=== PATIENT | female | born 1945 | race Caucasian/White ===

== ENCOUNTER 2017-11-16 23:12 | Inpatient (IN) | payer MEDICARE, OTHER ==
[2017-11-16] MEDS ORDERED: ONDANSETRON ODT 8 MG TAB SL ONE (23:34)
[2017-11-16] MEDS ORDERED: SODIUM CHLORIDE 0.9% 1000ML 1,000 ML IVS ONE (23:34)
--- NOTE | 2017-11-16 23:40 | ED.PDOC ---
History of Present Illness - General Chief Complaint: Neuro Symptoms/Deficits Stated Complaint: slurred speech, unsteady gait Time Seen by Provider: 11/16/17 23:33 Source: patient, family - History of Present Illness Initial Comments: patient is a 72-year-old who comes in for altered LOC. Patient states she's been under some increased stress as they have just found out that her will require pacemaker. However, she was feeling in normal health when she went to dinner with friends this evening. By the end of the dinner however should become emotional and not quite herself. She seemed a little bit unstable when she was walking and so they did go ahead and go home. On arrival to home patient became violently ill with nausea and vomiting several times with bilious emesis. Patient stated that she was confused and didn't quite know where she was at her became very concerned with her state of mind. She had no numbness nor weakness. She denies any change in sensation to her face, body, or extremities. She was able to speak but seems slightly confused. She denies any chest pain, shortness of breath, but is having some chills but no fever. She's not had any cough or cold symptoms recently. She denies any dysuria. She has no abdominal pain but is still quite tearful when she starts to discuss how she felt and how scared she was zee she didn't know where she was out. She has never had an episode like this be she is otherwise healthy and has no real past medical history. Patient does not smoke but she does drink vodka or wine daily. Tonight she only had 2 glasses. She does not take any illicit substances. Patient states she just feels so sick. She is not sure what is wrong but she feels horrible. Timing/Duration: 1-3 hours Severity: severe Improving Factors: nothing Associated Symptoms: nausea/vomiting, other - altered LOC Allergies/Adverse Reactions: Allergies Tetanus Toxoid Allergy (Verified 11/16/17 23:35) Review of Systems - Review of Systems Constitutional: States: chills, weakness. Denies: diaphoresis, fever EENTM: States: no symptoms reported. Denies: eye pain, ear pain, ear discharge , throat pain, throat swelling Respiratory: States: no symptoms reported. Denies: cough, short of breath, wheezing Cardiology: States: no symptoms reported. Denies: chest pain, edema, palpitations Gastrointestinal/Abdominal: States: no symptoms reported, nausea, vomiting. Denies: abdominal pain, diarrhea Genitourinary: States: no symptoms reported. Denies: dysuria, frequency Musculoskeletal: States: no symptoms reported Skin: States: no symptoms reported Neurological: States: weakness, other - see HPI. Denies: headache, numbness, paresthesia Past Medical History (General) - Patient Medical History Hx Asthma: No Hx of COPD: No Hx Congestive Heart Failure: No Hx Hypertension: No Surgical History: no surgical history - Vaccination History Hx Tetanus, Diphtheria Vaccination: No Hx Influenza Vaccination: No - Social History Hx Tobacco Use: No Hx Chewing Tobacco Use: No Hx Alcohol Use: Yes - wine Family Medical History - Family History Father Hx Family Diabetes: Yes Mother Hx Cardiac Disease: Yes Physical Exam - Physical Exam General Appearance: Anxious Eye Exam: bilateral normal Ears, Nose, Throat: hearing grossly normal, normal ENT inspection, normal pharynx Neck: non-tender, full range of motion, supple, normal inspection Respiratory: chest non-tender, lungs clear, normal breath sounds, no respiratory distress Cardiovascular/Chest: normal peripheral pulses, regular rate, rhythm, no edema, no gallop, no JVD, no murmur Peripheral Pulses: radial,right: 2+ Gastrointestinal/Abdominal: normal bowel sounds, non tender, soft, no organomegaly, no pulsatile mass Back Exam: normal inspection Extremity: normal range of motion Neurologic: mass spectrometry specialist II-XII nml as tested, no motor/sensory deficits, alert, oriented x 3 DTR: 2+: Biceps, left, Biceps, right, Patellar, left, Patellar, right Skin Exam: normal color, other - cool to touch Lymphatic: no adenopathy Progress - Progress Progress: 11/17/17 00:13 Patient Name: DIONNA FRANCO Gender: Female Date of : 1945 Referring Physician: TAE TURK 11/16/17 23:45 EKG STAT 11/17/17 00:46 Piperacillin/Tazobactam [Zosyn] 3.375 gm Sodium Chloride 0.9% 100Ml [NS (NACL 0.9%) 100ml] 100 ml IVPB ONCE 11/17/17 00:51 BLOOD CULTURE Stat 11/17/17 01:20 BLOOD CULTURE Stat Laboratory Results WBC 7.8 K/mm3 (4.8-10.8) 11/16/17 00:01 RBC 4.66 M/mm3 (4.20-5.40) 11/16/17 00:01 Hgb 14.1 gm/dL (12.0-16.0) 11/16/17 00:01 Hct 41.7 % (36.0-47.0) 11/16/17 00:01 MCV 89.6 fl (81.0-99.0) 11/16/17 00:01 MCH 30.2 pg (27.0-31.0) 11/16/17 00:01 MCHC 33.7 g/dL (33.0-37.0) 11/16/17 00:01 RDW 14.0 % (11.5-14.5) 11/16/17 00:01 Plt Count 311 K/mm3 (130-400) 11/16/17 00:01 MPV 7.2 fl (7.40-10.4) L 11/16/17 00:01 Absolute Neuts (auto) 4.90 K/uL (1.8-6.8) 11/16/17 00:01 Absolute Lymphs (auto) 2.20 K/uL (1.0-3.4) 11/16/17 00:01 Absolute Monos (auto) 0.40 K/uL (0.2-0.8) 11/16/17 00:01 Absolute Eos (auto) 0.10 K/uL (0.0-0.4) 11/16/17 00:01 Absolute Basos (auto) 0.10 K/uL (0.0-0.1) 11/16/17 00:01 Neutrophils % 63.4 % (42.0-78.0) 11/16/17 00:01 Lymphocytes % 28.9 % (20.0-50.0) 11/16/17 00:01 Monocytes % 5.7 % (2.0-9.0) 11/16/17 00:01 Eosinophils % 1.3 % (1.0-5.0) 11/16/17 00:01 Basophils % 0.7 % (0.0-2.0) 11/16/17 00:01 Sodium 138 mmol/L (135-145) 11/16/17 00:01 Potassium 3.7 mmol/L (3.6-5.0) 11/16/17 00:01 Chloride 103 mmol/L (101-111) 11/16/17 00:01 Carbon Dioxide 26 mmol/L (21-31) 11/16/17 00:01 Anion Gap 12.7 (12-18) 11/16/17 00:01 BUN 19 mg/dL (7-18) H 11/16/17 00:01 Creatinine 0.90 mg/dL (0.6-1.3) 11/16/17 00: BUN/Creatinine Ratio 21.1 (10-20) H 11/16/17 00:01 Random Glucose 113 mg/dL (70-105) H 11/16/17 00: Serum Osmolality 278.7 mOsm/L (275-295) 11/16/17 00: Lactic Acid 2.5 mmol/L (0.5-2.2) H* 11/16/17 00:01 Calcium 9.3 mg/dL (8.4-10.2) 11/16/17 00:01 Total Bilirubin 0.6 mg/dL (0.2-1.0) 11/16/17 00:01 AST 22 IU/L (10-42) 11/16/17 00:01 ALT 24 IU/L (10-60) 11/16/17 00:01 Alkaline Phosphatase 77 IU/L (42-121) 11/16/17 00:01 Creatine Kinase 62 IU/L (26-140) 11/16/17 00:01 CK-MB (CK-2) 1.5 ng/mL (0.0-4.4) 11/16/17 00:01 Troponin I < 0.02 ng/mL (0.01-0.05) 11/16/17 00:01 Serum Total Protein 7.4 gm/dL (6.4-8.2) 11/16/17 00:01 Albumin 4.1 g/dl (3.2-5.5) 11/16/17 00:01 Globulin 3.3 gm/dL (2.3-3.5) 11/16/17 00:01 Albumin/Globulin Ratio 1.2 (1.1-1.9) 11/16/17 00:01 Urine Color Yellow (Yellow) 11/16/17 23:39 Urine Appearance Clear (Clear) 11/16/17 23:39 Urine pH 5.5 (4.5-7.8) 11/16/17 23:39 Ur Specific Leonard 1.020 (1.005-1.030) 11/16/17 23:39 Urine Protein Negative mg/dL 11/16/17 23:39 Urine Glucose (UA) Negative mg/dL (Negative) 11/16/17 23:39 Urine Ketones Negative mg/dL (NEGATIVE) 11/16/17 23:39 Urine Blood Negative (Negative) 11/16/17 23:39 Urine Nitrite Negative 11/16/17 23:39 Urine Bilirubin Negative (NEGATIVE) 11/16/17 23:39 Urine Urobilinogen 0.2 mg/dL (0.2-1.0) 11/16/17 23:39 Ur Leukocyte Esterase Negative (Negative) 11/16/17 23:39 Urine RBC 0 /hpf 11/16/17 23:39 Urine WBC 0 /hpf 11/16/17 23:39 Ur Epithelial Cells 0-1 /hpf 11/16/17 23:39 Urine Bacteria Rare 11/16/17 23:39 Organization: [facility] Accession Number: [id number] Requested Date: November 16, 2017 23:34 Report Status: Final Requested Procedure: 1 Procedure Description: Head Modality: CT Findings Reporting MD: Tommy Houston Fellow MD: Not available Dictation Time: [employer] Driver: Not available Cemetery Counselor Date: EXAM: NONCONTRAST BRAIN CT EXAMINATION. CLINICAL INDICATION: Altered level of consciousness. COMPARISON: No comparisons are currently available. TECHNIQUE: Using low dose helical CT technique, thin section axial images were performed through the brain without the administration of intravenous or subarachnoid contrast material. FINDINGS: Brain volume is normal for age. No diffuse brain swelling or brain herniation. No hydrocephalus. No subdural or epidural hematomas. No large subacute brain infarction. No parenchymal brain hemorrhage or evidence of intracranial mass lesion. The brainstem and cerebellum are normal. Cerebral white matter is grossly normal. Caudate heads, lentiform nuclei, thalami and internal capsules are normal. Bones of the skull and skull base are normal. The middle ears and mastoid air cells are clear. The partially visualized paranasal sinuses are clear. Moderate atherosclerotic calcification in the cavernous internal carotid arteries. IMPRESSION: 1. Normal for age noncontrast brain CT examination 11/17/17 01:30 - EKG/XRAY/CT CT Ordered: Yes - Patient Name: DIONNA FRANCO Departure - Departure Clinical Impression: Dehydration, AGE (acute gastroenteritis) Disposition: Admit Patient Condition: Good Departure Forms: ED Discharge - Pt. Copy, Patient Portal Self Enrollment Referrals: Taran Gardner MD [Primary Care Provider] - 1-2 Weeks Comments: Patient is ill appearing and has elevated lactic acid. Zosyn started but no source and may be from dehydration and AGE. With age and elevation will admit for monitoring. Spoke with Dr. Roman and will admit.
--- NOTE | 2017-11-16 23:56 | CT ---
EXAM: NONCONTRAST BRAIN CT EXAMINATION. CLINICAL INDICATION: Altered level of consciousness. COMPARISON: No comparisons are currently available. TECHNIQUE: Using low dose helical CT technique, thin section axial images were performed through the brain without the administration of intravenous or subarachnoid contrast material. FINDINGS: Brain volume is normal for age. No diffuse brain swelling or brain herniation. No hydrocephalus. No subdural or epidural hematomas. No large subacute brain infarction. No parenchymal brain hemorrhage or evidence of intracranial mass lesion. The brainstem and cerebellum are normal. Cerebral white matter is grossly normal. Caudate heads, lentiform nuclei, thalami and internal capsules are normal. Bones of the skull and skull base are normal. The middle ears and mastoid air cells are clear. The partially visualized paranasal sinuses are clear. Moderate atherosclerotic calcification in the cavernous internal carotid arteries. IMPRESSION: 1. Normal for age noncontrast brain CT examination. This exam was performed according to our departmental dose-optimization program, which includes automated exposure control, adjustment of the mA and/or kV according to patient size and/or use of iterative reconstruction technique. Electronically signed by: Tommy Houston MD 11/16/2017 11:55 PM CDT
[2017-11-17] MEDS ORDERED: PIPERACILLIN/TAZOBACTAM 3.375 GM in SODIUM CHLORIDE 0.9% 100ML 100 ML IVPB ONE (00:46)
[2017-11-17] MEDS ORDERED: SODIUM CHLORIDE 0.9% 100ML 100 ML IVPB ONE ×3 (01:13→19:30)
[2017-11-17] MEDS ORDERED: PIPERACILLIN/TAZOBACTAM 3.375 GM VIAL IVPB ONE ×3 (01:13→19:30)
[2017-11-17] MEDS ORDERED: SODIUM CHLORIDE 0.9% (FLUSH) 10 ML SYG IV PRN (04:26)
[2017-11-17] MEDS ORDERED: IV SET AND CAP CHANGE INJ INJ SCH (04:30)
[2017-11-17] MEDS ORDERED: SODIUM CHLORIDE 0.9% 1000ML 1,000 ML IVS ONE (04:30)
[2017-11-17] MEDS ORDERED: ONDANSETRON INJ 4 MG/2 ML VIAL IV PRN (04:30)
[2017-11-17] MEDS: ACETAMINOPHEN 325 MG TAB PO PRN ×2 (04:59→20:56)
[2017-11-17] MEDS ORDERED: PANTOPRAZOLE SODIUM IV 40 MG VIAL IV SCH (05:00)
[2017-11-17] MEDS ORDERED: KCL 20 MEQ/NS 1,000 ML IVS PRN (06:00)
--- NOTE | 2017-11-17 07:12 | RAD ---
EXAM DESCRIPTION: Chest,2 Views CLINICAL HISTORY: sepsis unknown etiology COMPARISON: None available FINDINGS: The cardiomediastinal silhouette is unremarkable. There is no airspace consolidation or pleural effusion. The bronchovascular markings are within normal limits, and the lungs are not hyperinflated. There is no pneumothorax or acute fracture. IMPRESSION: Negative exam. Electronically signed by: Doyle Shirley MD 11/17/2017 7:11 AM CDT
--- NOTE | 2017-11-17 07:14 | RAD ---
EXAM DESCRIPTION: Abdomen Flat Upright CLINICAL HISTORY: 72 years Female, sepsis unknown etiology COMPARISON: None. FINDINGS: The bowel gas pattern is nonobstructive. There is a moderate amount of stool and gas scattered throughout the colon. A small calcification in the left side of the pelvis probably represents a phlebolith. There is additional calcification in the right lower quadrant which probably represents ingested material, less likely appendicolith. No concerning bone lesion. IMPRESSION: No evidence of obstruction. Probable left-sided pelvic phlebolith. If clinically suspicious of a distal left ureteral calculus, noncontrast CT is suggested. Calcification projecting over the cecum probably representing either ingested material or appendicolith. If clinically suspicious of appendicitis, this could also be further evaluated with CT. Electronically signed by: Doyle Shirley MD 11/17/2017 7:12 AM CDT
--- NOTE | 2017-11-17 08:38 | HP ---
SUPERVISING PHYSICIAN: Santi Hooker MD CHIEF COMPLAINT: Altered mental status, nausea and vomiting. HISTORY OF PRESENT ILLNESS: This is a 72-year-old female patient who presented to the Emergency Room on the night prior to admission due to altered mental status as well as an acute onset of nausea and vomiting. She had been in her usual state of health and she and her went out to eat dinner yesterday evening. She had her usual two glasses of wine with her meal. During her conversation during dinner, she became very emotional and tearful. Her had to assist her from the restaurant and take her home. She had a near syncopal episode walking to the car and her had to almost carry her to the car. She needs full assistance. After she got home, she had two bouts of nausea and when asked how the patient felt during this time, she had a difficult time remembering any of the symptoms during this episode. The only thing she remembers is being "violently sick." Her said during this time she had babbling, her conversation made no sense and after she vomited twice, he brought her to the Emergency Room. In the Emergency Room, she had no further complaints of vomiting, but she did have nausea. She continued to be quite confused. There was no numbness or weakness. There was no weakness in the extremities. She denied chest pain, shortness of breath as well as fever. She had no complaints of abdominal pain, but she had a difficult time describing where she was and what had happened to her previously in the last several hours. Her lab in the Emergency Room showed CBC basically within normal limits. Her electrolytes were within normal limits with the exception of her BUN was elevated at 19 and creatinine 0.9. Glucose slightly elevated at 113, but her lactic acid was 2.5. She received one liter of fluids and her repeat lactic acid was 2.4. CT of the head showed normal for age noncontrast brain CT. I was called for admission to the hospital. Additional lab work had an amylase that was elevated at 133 and lipase elevated at 81. Chest x-ray showed a negative exam. Her abdominal x-ray showed no evidence of obstruction, but there was a probable left sided pelvic phlebolith and recommended a noncontrast CT. There was also a calcification projecting over the cecum, probably representing either ingested material or appendicolith. Also recommended was an abdominal CT. She received Zosyn in the Emergency Room. Her urinalysis was within normal limits. Blood cultures were done prior to her receiving antibiotic therapy. She was admitted to the hospital. PAST MEDICAL HISTORY: 1. Hyperlipidemia. 2. Cervical cancer. PAST SURGICAL HISTORY: 1. Torn meniscus. 2. Total hysterectomy. HOME MEDICATIONS: 1. Calcium with magnesium. 2. Multivitamins. 3. Melatonin. ALLERGIES: TETANUS TOXOID. FAMILY HISTORY: Positive for congestive heart failure, leukemia, hypertension, renal aneurysm and type 2 diabetes. SOCIAL HISTORY: She is . She has two children. She denies any tobacco abuse. She does drink alcohol on a regular basis, but usually no more than two drinks per night. She denies any illicit drug use. REVIEW OF SYSTEMS: GENERAL: Negative for fever, fatigue or chills. HEENT: Negative for sinus symptoms, ear pain, vision disturbances or sore throat. RESPIRATORY: Negative for wheezing, coughing or shortness of breath. CARDIAC: Negative for chest pain, palpitations or tachycardia. GASTROINTESTINAL: As per history of present illness, but denies acute abdominal pain. GENITOURINARY: Negative for hematuria, dysuria or polyuria. MUSCULOSKELETAL: Negative for arthralgias, myalgias. SKINS: Negative for lesions or rashes. NEUROLOGIC: Positive for weakness and dizziness. Negative for headache or seizures. PHYSICAL EXAMINATION: VITAL SIGNS: Afebrile. Heart rate 75. Blood pressure 114/69. Respiratory rate 18. O2 saturation 96% on room air. GENERAL: This is a 72-year-old female patient who is lying in her hospital bed. She is in no acute distress. HEENT: Normocephalic, atraumatic. Pupils are equal and reactive. Oropharynx is clear. Oral mucous membranes are slightly dry. NECK: Supple without mass. No jugular venous distention. RESPIRATORY: Clear to auscultation bilaterally. CHEST: There is equal rise and fall of the chest with inspiration and expiration. CARDIOVASCULAR: Regular rate and rhythm. GASTROINTESTINAL: Abdomen is soft, nondistended, very mildly tender along the epigastrici region. There is no rebound tenderness or guarding. Bowel sounds are positive. EXTREMITIES: No cyanosis, clubbing or edema. NEUROLOGIC: Awake, alert and oriented times three although her responses to questioning seems sluggish at times. LABORATORY: Labs and films are as per history of present illness with the exception of her third lactic acid was elevated at 2.5. All other labs and films have been reviewed via the EMR. ASSESSMENT: 1. Questionable sepsis of unknown etiology with elevated lactic acid that has not improved in spite of 3 liters of fluids as well as antibiotic therapy. 2. Acute mental status changes with near syncopal episode. 3. Nausea and vomiting with acute onset. 4. Dehydration, most likely secondary to nausea and vomiting. 5. Elevated pancreatic enzymes. 6. Constipation. 7. Anxiety. PLAN: We will admit the patient to the hospital. We will continue with mild fluid resuscitation as well as her antibiotic therapy and monitor her blood cultures as they become available. I have ordered a CT of the abdomen and pelvis, especially due to elevated pancreatic enzymes and recommendations as per the x-ray report. I will give her some Milk of Magnesia for her constipation. I will also give her a low dose of benzodiazepine for her anxiety. I started her on a PPI for ulcer prophylaxis as well as Lovenox for DVT prophylaxis. She has been NPO for the CT of her abdomen and we will advance her diet as tolerated after completion of the CT. We will get a consult with Dr. Diaz if needed. We will continue to monitor the patient closely and follow as needed. Dr. Hooker is the collaborating physician and available for consultation. #[id number] [facility]
[2017-11-17] MEDS ORDERED: SODIUM CHLORIDE 0.9% (FLUSH) 10 ML SYG IV SCH (09:00)
[2017-11-17] MEDS ORDERED: IBUPROFEN 400 MG TAB PO ONE (09:29)
[2017-11-17] MEDS ORDERED: PIPERACILLIN/TAZOBACTAM 3.375 GM in SODIUM CHLORIDE 0.9% 100ML 100 ML IVPB SCH (11:00)
[2017-11-17] MEDS: PIPERACILLIN/TAZOBACTAM 3.375 GM in SODIUM CHLORIDE 0.9% 100ML 100 ML IVPB SCH ×2 (11:36→19:57)
--- NOTE | 2017-11-17 11:44 | CT ---
EXAM DESCRIPTION: Abdomen/Pelvis w/Contrast: Computed Tomography. CLINICAL HISTORY: abd pain COMPARISON: None. TECHNIQUE: Spiral-axial scans at 5.0 mm intervals through the abdomen and pelvis, after nonionic IV contrast. No oral contrast. Coronal and sagittal 2.0 mm reconstructions. No adverse reactions. Total Exam DLP: 837.5 mGy-cm. This exam was performed according to our departmental dose-optimization program which includes automated exposure control, adjustment of the mA and/or kV according to patient size and/or use of iterative reconstruction technique; to reduce radiation dose to as low as reasonably achievable (ALARA). FINDINGS: Lung bases and pleura: Negative. Liver, Stomach, Spleen, Adrenal Glands: Small gastric hiatal hernia. Solid organs are unremarkable. Pancreas, Gallbladder, Ducts: Gallbladder visualized. Duct negative. 1.6 x 1.4 x 1.0 centimeter cystic structure with average Hounsfield density +10 in the mid body of the superior pancreas. Smooth borders no calcifications and normal density of the adjacent fat. Pancreas otherwise unremarkable. Kidneys and Ureters: Negative. Mesentery: Unremarkable. Aorta: Minimal calcifications. Small Bowel: Negative. Terminal Ileum/Cecum: Unremarkable except for calcifications or radiodense fecal matter. Normal caliber of the appendix. Normal surrounding fat density. Colon: Scattered fecal material. Calcifications are radiodense fecal matter in the colonic sigmoid junction. Minimal redundancy of the sigmoid. Pelvic Organs: Unremarkable. Spine and Bony Pelvis: Narrowing L2-3 and L3-4 disc spaces. Disc bulging and canal and foraminal narrowing. Abdominal Wall/Back Soft Tissues: Negative. IMPRESSION: 1. 1.6 cm pseudocyst in the mid pancreas, no evidence of complications. No inflammatory changes in the abdomen or pelvis or other organs. 2. Small gastric hiatal hernia. 3. Spondylosis mid lumbar spine. Electronically signed by: Evans Reynoso MD 11/17/2017 11:43 AM CDT
[2017-11-17] MEDS ORDERED: ENOXAPARIN SODIUM 40 MG/0.4 ML SYG SUBCU SCH (12:30)
[2017-11-17] MEDS: MAGNESIUM HYDROXIDE 30 ML UD PO SCH ×2 (12:43→17:00)
[2017-11-17] MEDS: MELATONIN 3 MG TAB PO SCH (20:57)
[2017-11-17] MEDS ORDERED: MELATONIN 3 MG TAB PO ONE (21:00)
[2017-11-17] MEDS ORDERED: NON-FORMULARY MEDICATION 1 EA MIS (Melatonin [Melatonin] 5 MG) PO SCH (21:00)
[2017-11-18] MEDS ORDERED: PIPERACILLIN/TAZOBACTAM 3.375 GM VIAL IVPB ONE ×4 (03:17→21:13)
[2017-11-18] MEDS ORDERED: SODIUM CHLORIDE 0.9% 100ML 100 ML IVPB ONE ×4 (03:18→21:13)
[2017-11-18] MEDS: PIPERACILLIN/TAZOBACTAM 3.375 GM in SODIUM CHLORIDE 0.9% 100ML 100 ML IVPB SCH ×3 (04:12→20:09)
[2017-11-18] MEDS: PANTOPRAZOLE SODIUM TAB 40 MG PO SCH (06:01)
[2017-11-18] MEDS ORDERED: POTASSIUM CHLORIDE 20 MEQ TAB PO ONE (09:00)
[2017-11-18] MEDS: ENOXAPARIN SODIUM 40 MG/0.4 ML SYG SUBCU SCH (09:25)
[2017-11-18] MEDS: ACETAMINOPHEN 325 MG TAB PO PRN ×2 (09:55→21:22)
--- NOTE | 2017-11-18 13:02 | US ---
EXAM DESCRIPTION: Gall Bladder CLINICAL HISTORY: 72 years Female, elevated lipase, amylase COMPARISON: None. FINDINGS: Pancreas is seen segmentally. Anterior to the region of the pancreatic neck is a bilobed thick walled cystic structure approximately 1.7 x 2.4 x 2.2 cm in size just very or posterior to the left lobe of the liver small cystic pancreatic mass or pseudocyst is suspected. When able further evaluation with multiphase CT examination without and with contrast enhancement including noncontrast, arterial phase, and venous phase imaging is recommended. Remainder the pancreas is unremarkable without a large fluid collection or large amount of edema involving the pancreatic tissue visualized. Liver is normal in size and appearance without cystic or solid mass within the liver. The gallbladder is normally distended. Wall thickening or edema is not apparent in the common duct is normal at 4 mm. Hepatopetal flow within the 11 mm portal vein is demonstrated. No abdominal ascites is noted. Right kidney is 8.9 cm in length without obstruction or mass or cyst. IMPRESSION: 1. 2.4 cm bilobed thick walled cystic structure just anterior and cephalad to the pancreas along the posterior margin of the left lobe of the liver suggesting a small pancreatic pseudocyst or cystic mass. When able further characterization with multiphase noncontrast and contrast enhanced CT recommended. 2. Remainder of the right upper quadrant sonogram is normal with normal appearance of the liver gallbladder and biliary system and right kidney. Electronically signed by: Santi Moore MD 11/18/2017 1:00 PM CDT
[2017-11-18] MEDS: DESVENLAFAXINE ER 50 MG TAB PO SCH (13:30)
--- NOTE | 2017-11-18 13:41 | PN ---
SUPERVISING PHYSICIAN: Santi Hooker MD DATE: 11/18/17 SUBJECTIVE: The patient is sitting up in her hospital bed. She still feels quite weak but is somewhat better. She has no complaints of nausea or vomiting. We discussed her tests and laboratory results. We also discussed starting her on an antidepressant which she agrees will be helpful. Because of her GI symptoms and elevated pancreatic enzymes, I informed her we will do a gallbladder sonogram this afternoon and get her in to see GI as soon as possible. OBJECTIVE: VITAL SIGNS: Afebrile. Heart rate 64. Blood pressure 144/89. Respiratory rate 18. O2 saturation 97% on room air. RESPIRATORY: Essentially clear to auscultation bilaterally. CARDIAC: Regular rate and rhythm. GASTROINTESTINAL: Abdomen is soft, nondistended. Continue to be diffuse tender along the epigastric area. Bowel sounds are positive. EXTREMITIES: No cyanosis, clubbing or edema. NEUROLOGIC: Awake, alert and oriented times three. LABORATORY: WBCs 4.1, hemoglobin 11.9, hematocrit 34.8. Lactic acid has normalized to 1.1 and her electrolytes show sodium 140, potassium 3.9, chloride 107, carbon dioxide 27, BUN 14, creatinine 1.06. Amylase 84, lipase 35. Preliminary blood cultures show no growth after [address] showed a 1.6 cm pseudocyst in the mid pancreas with no evidence of complications, no inflammatory changes in the abdomen or pelvis or other organs , small gastric hiatal hernia, spondylosis of the mid lumbar spine. All other labs and films have been reviewed via the EMR. ASSESSMENT: 1. Questionable sepsis of unknown etiology with elevated lactic acid that initially did not improve in spite of 3 liters of fluids and antibiotic therapy. After 24 hours, it is now normalized. 2. Acute mental status changes with near syncopal episode. 3. Nausea and vomiting with acute onset, now improved. 4. Dehydration, most likely secondary to nausea and vomiting, improved. 5. Elevated pancreatic enzymes. 6. Constipation. 7. Anxiety. PLAN: We will continue present supportive care. I have ordered a gallbladder sonogram to be done this afternoon. I spoke with her primary care physician, Dr. Can Gardner, and we will try to get the patient into GI for referral as soon as possible. We will start her on Pristiq for her depression and anxiety. We will also need to give her an additional dose of Milk of Magnesia as she has had only a small bowel movement. Her blood pressure is somewhat elevated, but we will continue to monitor that and hopefully it will improve with her antidepressant and decreasing stress levels. Otherwise, we anticipate the patient to be discharged tomorrow. Dr. Hooker is the collaborating physician and available for consultation. #[id number] [facility]TD[facility]
[2017-11-18] MEDS ORDERED: MELATONIN 3 MG TAB PO ONE (21:00)
[2017-11-18] MEDS: MELATONIN 3 MG TAB PO SCH (21:18)
[2017-11-19] MEDS ORDERED: cloNIDine HCL 0.1 MG TAB PO ONE (01:41)
[2017-11-19] MEDS: PIPERACILLIN/TAZOBACTAM 3.375 GM in SODIUM CHLORIDE 0.9% 100ML 100 ML IVPB SCH (04:00)
[2017-11-19] MEDS: PANTOPRAZOLE SODIUM TAB 40 MG PO SCH (06:10)
[2017-11-19] MEDS: ENOXAPARIN SODIUM 40 MG/0.4 ML SYG SUBCU SCH (09:51)
[2017-11-19] MEDS: DESVENLAFAXINE ER 50 MG TAB PO SCH (09:54)
[2017-11-19 10:03] VITALS: BP 128/79; TEMP 98.9; O2SAT 97
--- NOTE | 2017-11-19 17:15 | DS ---
SUPERVISING PHYSICIAN: Anthony Dave M.D. DISCHARGE DIAGNOSIS: 1. Questionable sepsis of unknown etiology with elevated lactic acid that initially did not improve in spite of 3 liters of IV fluids as well as antibiotic therapy, 24 hours after admission it normalized and she has normal blood cultures. 2. Acute mental status change with near syncopal episode. 3. Nausea and vomiting with acute onset, now improved. 4. Dehydration, most likely secondary to nausea and vomiting, improved. 5. Elevated pancreatic enzymes that have now normalized. 6. Constipation. 7. Anxiety. HISTORY OF PRESENT ILLNESS: This is a 72-year-old female patient who presented to the Emergency Room on the evening prior to admission due to altered mental status as well as an acute onset of nausea and vomiting. She had been in her usual state of health and she and her went out to eat dinner. She had her usual two glasses of wine with her meal. During her conversation during dinner, she became very emotional and tearful. Her had to assist her from the restaurant and take her home. She had a near syncopal episode walking to the car and her had to almost carry her to the car. She needs full assistance. After she got home, she had two bouts of nausea with vomiting. She had a difficult time remembering the symptoms and the incidence during dinner. When asked how she felt, she felt "violently sick." Her stated that her conversation was babbled and was very difficult to understand. After her second round of emesis, he brought her to the Emergency Room. In the Emergency Room, she was still quite confused but there was no vomiting. She denied chest pain or weakness. She had no complaints of abdominal pain, but she had a difficult time describing where she was and what had happened to her in the previous few hours prior to her admission to the Emergency Room. Her CBC basically within normal limits. Her electrolytes were within normal limits with the exception of her BUN was elevated at 19 and creatinine 0.9. Glucose was slightly elevated at 113, but her lactic acid was 2.5. She received one liter of fluids and her repeat lactic acid was 2.4. CT of the head showed normal for age noncontrast brain CT. She was admitted to the hospital. Additional lab work showed an amylase of 133 and lipase at 81. Chest x-ray was negative. Her abdominal x-ray showed no evidence of obstruction, but there was a probable left sided pelvic phlebolith and recommended a noncontrast CT. There was also a calcification projecting over the cecum, probably representing either ingested material or appendicolith. He also recommended an abdominal CT. She received Zosyn in the Emergency Room. Her urinalysis was within normal limits. Blood cultures were obtained prior to admission to the hospital. HOSPITAL COURSE: On the second day after admission, her lactic acid normalized to 1.1. CT of the abdomen was obtained and per radiology interpretation showed a 1.6 cm pseudocyst in the mid pancreas with no evidence of complication or inflammatory changes in the abdomen or pelvis, or other organs. Small gastric hiatal hernia. Spondylosis of the mid lumbar spine. Amylase and lipase normalized to 84 and 35. She continued on the Zosyn and her blood cultures showed no growth after 48 hours. Gallbladder sonogram was also completed and per radiology interpretation showed a 2.4 cm bilobed thick-walled cystic structure just anterior and cephalad to the pancreas along the posterior margin of the left lobe of the liver suggesting a small pancreatic pseudocystic mass. It also showed that the remainder of the right upper quadrant sonogram is normal with a normal appearance of the liver, gallbladder and biliary systems and right kidney. Due to increased stressors in her life, she was started on Pristiq for her anxiety. She also was concerned with her blood pressure and her highest blood pressure was 182/90. She was given some Clonidine at that time and brought her blood pressure down to 138/76. She is on no blood pressure medicine and was quite concerned with that. All of her labs and vital signs have stabilized, and she will be discharged home today. DISCHARGE PLAN: The patient will be discharged home in stable condition. I have given her a prescription for Pristiq as well as Clonazepam for anxiety. I have also given her Clonidine for a systolic blood pressure greater than 180 or a diastolic blood pressure greater than 95. She will need to see a GI doctor as soon as possible. She will go home with a disc of all of her radiologic studies done here at the hospital. Because her lactic acid normalized after fluids and antibiotics and her blood cultures showed no growth, she has had no signs or symptoms of any infection since, she will not go home on any antibiotics. She will have close followup with her primary care physician, Dr. Gardner, on 11/22/17 at 10:44 AM. She is to return to the hospital or followup with Dr. Gardner's office for any problems or complications. DISCHARGE MEDICATIONS: 1. Melatonin. 2. Multivitamins. 3. Calcium and magnesium. 4. Clonazepam. 5. Pristiq. 6. Clonidine. Dr. Dave is the collaborating physician available for consultation. #[id number] [facility]
== END 2017-11-19 11:00 | disposition home or self-care (01) | DRG 872 ==
LOC: ER 23:12 → OBSVTOIN 11-17 03:01 → MS 11-17 03:01
PROVIDERS: ADMIT Nurse Practitioner Acute Care; ATTEND Nurse Practitioner Acute Care
DX: A41.9 Sepsis, unspecified organism (principal); K86.3 Pseudocyst of pancreas; R11.2 Nausea with vomiting, unspecified; E86.0 Dehydration; K59.00 Constipation, unspecified; F41.9 Anxiety disorder, unspecified; I87.8 Other specified disorders of veins; K44.9 Diaphragmatic hernia without obstruction or gangrene; M47.896 Other spondylosis, lumbar region; E78.5 Hyperlipidemia, unspecified; Z85.41 Personal history of malignant neoplasm of cervix uteri

== ENCOUNTER → 2018-07-18 | Outpatient (CLI) | payer MEDICARE, OTHER | LOC: GMAE 13:03 | PROVIDERS: ATTEND Family Medicine | DX: L66.1 Lichen planopilaris (principal); L29.8 Other pruritus; I10 Essential (primary) hypertension; M89.9 Disorder of bone, unspecified ==

== ENCOUNTER → 2018-11-10 | Outpatient (CLI) | payer MEDICARE, OTHER ==
--- NOTE | 2018-11-10 20:36 | CT ---
EXAM DESCRIPTION: Abdomen w/Contrast: Computed Tomography. CLINICAL HISTORY: PANCREATIC CYST COMPARISON: CT scan of the abdomen and pelvis with IV contrast 11/17/2017. TECHNIQUE: Spiral-axial scans at 5 x 5 mm intervals through the abdomen, after nonionic IV contrast. No oral contrast. Coronal and sagittal 2.0 mm reconstructions. No delayed scans.. No adverse reactions. Total Exam DLP: 269.86 mGy-cm. This exam was performed according to our departmental CT dose-optimization program which includes automated exposure control, adjustment of the mA and/or kV according to patient size and/or use of iterative reconstruction technique; to reduce radiation dose to as low as reasonably achievable (ALARA). FINDINGS: Lung bases and pleura: Negative. Liver, Stomach, Spleen, Adrenal Glands: Possible small hiatal hernia. Solid organs are negative. Pancreas, Gallbladder, Ducts: A cyst is present in the proximal body of the pancreas measuring 8.1 x 6.5 mm. May be a smaller cyst anterior to this cyst, less than 5 mm diameter. On the prior study, the cyst measured 1.4 x 1.2 cm. Pancreatic duct is not dilated. No fluid or fatty stranding abutting the system of the pancreas. Normal enhancement of the remainder of the pancreas. Gallbladder is visualized and common bile duct is normal caliber. Kidneys: Unremarkable. Mesentery: No free air or free fluid. No fatty stranding or fascial thickening. Aorta: Minimal atherosclerotic calcification and intimal wall thickening proximally. Small Bowel: Included segments are normal caliber containing minimal fluid and gas. Terminal Ileum/Cecum: Partially visualized. Colon: Partially visualized. Fecal matter involving most of the proximal mid and distal included segments. Spine: Spondylosis at L2-3 stable. Abdominal Wall/Back Soft Tissues: Unremarkable. IMPRESSION: 1. Pancreatic cyst seen on the prior study is decreased in size and consists of 2 smaller cysts. No inflammatory changes or fluid collections in the adjacent fatty tissues. Pancreas otherwise unremarkable. Electronically signed by: Evans Reynoso MD 11/10/2018 8:32 PM CDT
== END ==
LOC: CT 11:36
PROVIDERS: ATTEND Internal Medicine Gastroenterology
DX: K86.2 Cyst of pancreas (principal)